=== PATIENT | male | born 1995 | race Two or more races ===

== ENCOUNTER 2020-09-02 12:40 | Emergency (ER) | payer OTHER ==
[~2020-09-02] VITALS: Ht 157.5 cm; Wt 63.6 kg
[2020-09-02] MEDS ORDERED: KETOROLAC TROMETHAMINE 10 MG TABLET PO ONE (13:15)
[2020-09-02 15:47] VITALS: BP 122/74
== END 2020-09-02 15:50 | disposition home or self-care (01) ==
LOC: EMS 12:47
DX: S83.92XA Sprain of unspecified site of left knee, initial encounter (principal); W21.02XA Struck by soccer ball, initial encounter; Y93.66 Activity, soccer; Y92.89 Other specified places as the place of occurrence of the external cause; Y99.8 Other external cause status
CPT/HCPCS: 29505; 99283